=== PATIENT | female | born 1985 | race Caucasian/White ===

== ENCOUNTER → 2019-06-22 09:46 | Outpatient (CLI) | payer OTHER, SELFPAY ==
[2019-06-22 12:26] LABS: Hematocrit 33.3 % (37-47); Mean Corpuscular Hgb 30.3 pg (27.0-32.0); Mean Corpuscular Volume 91.7 fL (81-99); Platelet Count 443 K/mm3 (150-450); RBC Distribution Width CV 14.6 % (11.6-14.6); RBC Distribution Width SD 49.6 fl (35.1-43.9); Red Blood Count 3.63 M/mm3 (4.2-5.4); White Blood Count 11.9 K/mm3 (4.4-11.0)
[2019-06-22 12:32] LABS: Glucose Challenge Gest 1H 50g 134 mg/dL (70-140)
== END ==
PROVIDERS: Visit Provider Obstetrics & Gynecology
DX: Z34.83 Encounter for supervision of other normal pregnancy, third trimester (principal)
CPT/HCPCS: 36415; 82950; 85027

== ENCOUNTER → 2019-08-18 | Outpatient (CLI) | payer OTHER, SELFPAY | END | disposition home or self-care (01) | LOC: LABSPEC 14:43 | PROVIDERS: Referring Provider Advanced Practice Midwife; Visit Provider Advanced Practice Midwife | DX: Z34.83 Encounter for supervision of other normal pregnancy, third trimester (principal) | CPT/HCPCS: 87081 ==

== ENCOUNTER 2019-08-27 17:37 | Emergency (ER) | payer OTHER, SELFPAY ==
[2019-08-27 17:38] VITALS: BP 126/79; PULSE 120; RESP 16; TEMP 36.8; O2SAT 98; BMI 32.9
--- NOTE | 2019-08-27 17:48 | EKG12_ITS ---
Test Reason : SOB Blood Pressure : / mmHG Vent. Rate : 111 BPM Atrial Rate : 111 BPM P-R Int : 130 ms QRS Dur : 080 ms QT Int : 338 ms P-R-T Axes : 023 008 019 degrees QTc Int : 459 ms Sinus tachycardia Otherwise normal ECG Confirmed by AXEL JUÁREZ, MARSHA ([id number]), desk editor ANGEL ZIMMERMAN ([id number]) on 08/30/2019 8:58:40 AM Referred By: NIRU Confirmed By:MARSHA REYNA MD
--- NOTE | 2019-08-27 17:51 | ED.DCSUM_ITS ---
History of Present Illness Chief Complaint: Shortness of Breath Informant: Patient Onset: Days - 5 days Context: Gradual Onset Current Severity: Moderate Maximum Severity: Moderate Narrative: Patient presents with cough, shortness of breath, wheezing, and congestion. She states she started to get sick on Wednesday. She felt some chest heaviness with shortness of breath that she was concerned may be pneumonia. She developed sinus congestion that is now moved into her chest. She is coughing up green sputum. She reports a temperature of 99.8 T-max yesterday morning. Patient is currently 37 weeks . She has felt normal movement. She was seen by her OB 2 days ago for routine follow-up and mentioned that she was short of breath with a cough. He started her on a Z-Martínez but she has not noted any improvement. Past Medical History - Allergies and Home Meds Allergies/Adverse Reactions: Allergies No Known Allergies Allergy (Verified 08/27/19 17:38) Primary Care Physician: NOT,DEFINED [NON-STAFF] - Past Medical History: - - History of pneumonia Smoking Status: Never smoker Review of Systems General: Reports: Fever - T-max 99.8 Eyes: Denies: Visual changes - bilaterally ENT: Reports: - - Sinus congestion. Denies: Bilateral ear pain, Sore throat Cardiovascular: Reports: Chest pain - Chest heaviness Respiratory: Reports: Dyspnea, Cough, Sputum Gastrointestinal: Denies: Abdominal pain, Vomiting, Diarrhea Genitourinary: Denies: Dysuria Musculoskeletal: Denies: Extremity Pain Skin: Denies: Rash Neurological: Denies: Headache Allergy: Denies: Uticaria Physical Exam Vital Signs/Narrative: Vital Signs Temp Pulse Resp BP Pulse Ox 08/27/19 17:38 98.3 F 120 H 16 126/79 H 98 Inital Vital Signs reviewed: Yes General: Well nourished, Well developed Head: Normocephalic ENT: Moist mucous membranes, TM's clear Neck: Supple Cardiovascular: Tachycardia Respiratory: No distress, CTA bilaterally Abdomen: Soft - Gravid, Nontender Extremities: Nontender Skin: Normal color Neurological: Alert, Oriented x3 Psychological: Normal affect Diagnostic/Tx/Re-eval Impressions Chest X-Ray 08/27/19 17:53 IMPRESSION: Normal x-ray examination of the chest. Electronically Signed: Pepe Martinez MD at 18:25 EST , Service support , 08/27/19 17:53 Chest 1 View (Portable) [RAD] Stat 08/27/19 18:05 Mucosa - Nose Influenza Types A,B Direct FA (MARIBEL) - Final - POSITIVE INFLUENZA B Laboratory Results 08/27/19 08/27/19 18:00 18:00 WBC 8.8 RBC 3.89 L Hgb 11.6 L Hct 35.4 L MCV 91.0 MCH 29.8 MCHC 32.8 RDW Std Deviation 45.4 H RDW Coeff of Laura 13.8 Plt Count 366 MPV 9.8 Immature Gran % (Auto) 0.300 Neut % (Auto) 77.7 H Lymph % (Auto) 16.3 L Fulton % (Auto) 5.2 Eos % (Auto) 0.3 Baso % (Auto) 0.2 Absolute Neuts (auto) 6.8 Absolute Lymphs (auto) 1.43 Nucleated RBC % 0 Sodium 140 Potassium 3.8 Chloride 110 H Carbon Dioxide 21.0 Anion Gap 9 BUN 6 L Creatinine 0.51 L Estim Creat Clear Calc 146.88 Est GFR (MDRD) Af Amer 177 Est GFR (MDRD) Non-Af 146 BUN/Creatinine Ratio 11.7 Glucose 90 Calcium 8.4 L - EKG Initial EKG Interpretation: Sinus Tachycardia - Sinus tach at 111. Normal intervals and no acute ischemia. - Medical Decision Making Patient was given a liter IV fluids and heart rate improved to 100. Patient was given a DuoNeb treatment. Following this she states her lungs still feel tight. She does not have any wheezing. Test results are discussed with her. She is positive for influenza B. Technically she is outside the 48-hour window for Tamiflu treatment, however because she is she will be treated. First doses given here and prescription will be sent to [facility] in [place]. heart tones are measured at 160. I did speak with her GREEN MEAT GRADER, Dr. Miles. No further changes to her treatment. ED Disposition - Plan for ED Patient: Disposition: Home or Assisted Living Diagnosis: Influenza Instructions: INFLUENZA (Adult) Prescriptions: Oseltamivir Phosphate [Tamiflu] 75 mg PO BID #10 cap Transmission Status: Pending to [facility]/pharmacy #[id number] Referrals: Jaya Miles MD [STAFF PHYSICIAN] - Keep Rahda appointment
--- NOTE | 2019-08-27 17:53 | RAD_ITS ---
STUDY: X-RAY CHEST REASON FOR EXAM: Female, 34 years old. PT WITH COUGH/SOB, WHEEZING, AND GENERAL FLU LIKE SX. STARTED ON Z-SHARLENE FRI, BUT NOT FEELING ANY BETTER. 37WKS PREG, PATIENT WAS SHIELDED TECHNIQUE: Single frontal view of the chest. COMPARISON: None. FINDINGS: The lungs are clear and expanded. There is no demonstrated pleural abnormality. Normal size heart. Normal mediastinum and robert. Normal visualized pulmonary arteries. Normal visualized aortic arch and descending thoracic aorta. Normal visualized thoracic spine. Normal visualized ribs, clavicles, and shoulders. There is no demonstrated abnormality of the visualized soft tissue structures of the upper abdomen. RAD/Chest 1 View (Portable) IMPRESSION: Normal x-ray examination of the chest. Electronically Signed: Pepe Martinez MD at 18:25 EST , Service support ,
[2019-08-27] MEDS: 0.9% Normal Saline 1,000 ML 1000 ML IV (18:03)
[2019-08-27 18:22] LABS: Absolute Lymphocyte Count 1.43 X10^3/uL (0.83-4.51); Absolute Neutrophil Count 6.8 X10^3/uL (2.0-7.7); Basophil# 0.02 X10^3/uL; Basophil% 0.2 % (0-1); Eosinophil# 0.03 X10^3/uL; Eosinophils% 0.3 % (0-5); Hematocrit 35.4 % (37-47); Hemoglobin 11.6 g/dL (12.0-15.0); Lymphocyte # 1.43 X10^3/ul (4.0); Lymphocyte % 16.3 % (19-41); Mean Corp Hgb Conc 32.8 g/dL (32-36); Mean Corpuscular Hgb 29.8 pg (27.0-32.0); Mean Platelet Vol. 9.8 fl (6.2-12.0); Monocyte# 0.46 X10^3/uL; Monocyte% 5.2 % (0-10); NRBC Flagged by Analyzer 0 % (0-5); Neutrophil # 6.83 X10^3/uL (2.7-7.7); Neutrophil % 77.7 % (47-70); Platelet Count 366 K/mm3 (150-450); RBC Distribution Width CV 13.8 % (11.6-14.6); RBC Distribution Width SD 45.4 fl (35.1-43.9); Red Blood Count 3.89 M/mm3 (4.2-5.4); White Blood Count 8.8 K/mm3 (4.4-11.0)
[2019-08-27 18:26] LABS: Anion Gap 9 (5-15); BUN 6 mg/dL (7-18); BUN/Creat Ratio 11.7 RATIO (10-20); Calcium,Total 8.4 mg/dL (8.5-10.1); Chloride 110 mmol/L (98-107); Creatinine, Serum 0.51 mg/dL (0.55-1.02); EST Glomerular Filtration Rate 146 mL/min (>60); Est Glom Filt Rate - Afr Amer 177 mL/min (>60); Estimated Creatinine Clearance 146.88 ml/min; Glucose 90 mg/dL (74-106); Potassium 3.8 mmol/L (3.5-5.1); Sodium Level 140 mmol/L (136-145)
[2019-08-27 19:09] VITALS: PULSE 122; RESP 16
[2019-08-27] MEDS: Ipratropium/Albuterol Sulfate 3 ML AMPUL.NEB INHALATION (19:09)
[2019-08-27] MEDS: Oseltamivir Phosphate 75 MG Capsule PO (19:56)
[2019-08-27 20:03] VITALS: PULSE 101; RESP 20; O2SAT 98
== END 2019-08-27 20:04 | disposition home or self-care (01) ==
PROVIDERS: Emergency Provider Emergency Medicine
DX: O98.513 Other viral diseases complicating pregnancy, third trimester (principal); J10.1 Influenza due to other identified influenza virus with other respiratory manifestations; Z3A.37 37 weeks gestation of pregnancy; Z87.01 Personal history of pneumonia (recurrent)
CPT/HCPCS: 71045; 80048; 85025; 87804; 93005; 94640; 96360; 96361; 99285; J7030

== ENCOUNTER 2019-09-03 17:25 | Outpatient (CLI) | payer OTHER, SELFPAY ==
[2019-09-03 17:51] VITALS: BMI 33.1
--- NOTE | 2019-09-03 23:55 | OB.TRI.NOTE ---
- Problem List (1) 38 weeks gestation of Status: Acute (2) Decreased movement Status: Acute Qualifiers: Fetus number: single or unspecified fetus Trimester: third trimester Qualified Code(s): O36.8130 - Decreased movements, third trimester, not applicable or unspecified History of Present Illness Date of Service: 09/03/19 Was patient seen by the physician?: No Reason For Visit: FALL Final ZAINAB: 09/14/19 Gestational age: 38 Weeks and 3 Days History of Present Illness: 34yo G1 @ 38 3/7wga with c/o decreased movement today. She reports a fall yesterday on 09/02/19 with normal movement afterwards initially. She was picking something up off the floor while on her knees and fell over onto her side. Allergies No Known Allergies Allergy (Verified 08/27/19 17:38) NST - FHR Rate Baby A Baseline: 135 Variability:: Moderate Accelerations:: 15 x 15 Decelerations:: None NST Reactive:: Yes FHR Category:: Category I Uterine Activity:: 0/10 Impression/Plan Reactive NST -Pt felt improved movement during observation period per RN - status reassuring -d/c home
== END 2019-09-03 19:35 | disposition home or self-care (01) ==
PROVIDERS: Referring Provider Obstetrics & Gynecology; Visit Provider Obstetrics & Gynecology
DX: O36.8130 Decreased fetal movements, third trimester, not applicable or unspecified (principal); Z3A.38 38 weeks gestation of pregnancy; W19.XXXA Unspecified fall, initial encounter; Y93.9 Activity, unspecified; Y92.9 Unspecified place or not applicable
CPT/HCPCS: 59025; 59050; 99218; G0378

== ENCOUNTER 2019-09-21 19:08 | Inpatient (IN) | payer OTHER, SELFPAY ==
[2019-09-21 19:49] VITALS: BP 138/80; PULSE 103; TEMP 37.1
[2019-09-21 19:54] VITALS: BP 138/80; PULSE 103; TEMP 37.1; O2SAT 98
[2019-09-21 19:56] VITALS: PULSE 120; O2SAT 94
[2019-09-21 20:00] VITALS: BMI 33.4
[2019-09-21] MEDS: Lactated Ringers 1,000 ML 50 ML IV (20:05)
[2019-09-21 20:19] LABS: Absolute Lymphocyte Count 2.28 X10^3/uL (0.83-4.51); Basophil# 0.01 X10^3/uL; Basophil% 0.1 % (0-1); Eosinophil# 0.05 X10^3/uL; Eosinophils% 0.4 % (0-5); Hematocrit 35.2 % (37-47); Hemoglobin 11.6 g/dL (12.0-15.0); Lymphocyte # 2.28 X10^3/ul (4.0); Mean Corpuscular Hgb 29.8 pg (27.0-32.0); Mean Corpuscular Volume 90.5 fL (81-99); Mean Platelet Vol. 9.9 fl (6.2-12.0); Monocyte# 0.85 X10^3/uL; NRBC Flagged by Analyzer 0 % (0-5); Neutrophil # 10.97 X10^3/uL (2.7-7.7); Neutrophil % 76.9 % (47-70); Platelet Count 367 K/mm3 (150-450); RBC Distribution Width CV 14.4 % (11.6-14.6); RBC Distribution Width SD 47.4 fl (35.1-43.9); Red Blood Count 3.89 M/mm3 (4.2-5.4); White Blood Count 14.2 K/mm3 (4.4-11.0)
--- NOTE | 2019-09-21 22:20 | HP.PCM_ITS ---
- Problem List (1) 41 weeks gestation of Status: Acute History Date of Admission: 09/21/19 Final ZAINAB: 09/14/19 Final ZAINAB Source: US <20 weeks Gestational age: 41 Weeks and 0 Days History of this : This is a 34 year-old, G [1], P [], at 41 weeks gestational age scheduled for induction of labor. Medical History: Medical History (Last Updated 09/21/19 @ 22:[address] Siena Cabrera MD) Depression F32.9 Allergies No Known Allergies Allergy (Verified 08/27/19 17:38) Home Medications: Home Medications Pnv No.95/Ferrous Fum/Folic AC [ Caplet] 1 ea PO DAILY 08/27/19 Esomeprazole Magnesium [Nexium 24Hr] 20 mg PO DAILY 09/21/19 Smoking Status: Former smoker Alcohol: None Number of Fetus(es): 1 NST - FHR Rate Baby A Baseline: 130 Variability:: Moderate Accelerations:: 15 x 15 Decelerations:: None NST Reactive:: Yes FHR Category:: Category I Uterine Activity:: 1-2/10 History Past Pregnancies: Past Pregnancies Delivery Date Name GA/ Weeks Outcome Route Wt Sex Labor Length Anesthesia Delivery Location Provider FOB Labs: Mom's Problem List Problem Status Onset Code 39 weeks gestation of Acute Z3A.39 Mom's Labs & Results 09/21/19 09/21/19 20:05 20:05 WBC 14.2 H RBC 3.89 L Hgb 11.6 L Hct 35.2 L MCV 90.5 MCH 29.8 MCHC 33.0 RDW Std Deviation 47.4 H RDW Coeff of Laura 14.4 Plt Count 367 MPV 9.9 Immature Gran % (Auto) 0.600 Neut % (Auto) 76.9 H Lymph % (Auto) 16.0 L Whitman % (Auto) 6.0 Eos % (Auto) 0.4 Baso % (Auto) 0.1 Absolute Neuts (auto) 11.0 H Absolute Lymphs (auto) 2.28 Nucleated RBC % 0 Blood Type O POSITIVE Antibody Screen NEGATIVE Course Did the patient receive Yes care? Labs Blood Type: O RH: POSITIVE RPR/VDRL/Syphilis Nonreactive Rubella status Immune HbSAg Negative Date Done: 02/21/19 Chlamydia Negative Gonorrhea Negative HIV/AIDS Non-Reactive Group B Strep: Negative Other Lab Procedures/Results/ chlamydia and gonorrhea results found by Comments: Deborah under pts other doctor hx from Current Obstetrical History Gestational Diabetes No Incompetent Cervix Yes: fingertip Infertility Yes: IUI for sperm donor IUGR No Macrosomia No Hypertension/Pre-eclampsia No Placenta Previa/Abruption Yes: marginal in beginning, resolved on 09/08 PTL/PROM No Uterine anomaly No Oligohydramnios No Polyhydramnios No Multiple gestation No Past Medical History Asthma No Diabetes No Hypertension No Heart disease No Mitral valve prolapse No Neurologic/Seizure disorder/ No Migraines Kidney disease No Liver disease No Varicosities No Clotting disorders/Hx of DVT No Thyroid Dysfunction No Other medical diseases Yes: hiatal hernia Psychiatric disorders Yes: hx of depression, no meds Major trauma No Abnormal PAP smear No Sleep apnea No Mammogram in the last 2 years No Social History Marital Status: SINGLE Hx Smoking No Smoking Status Former smoker Expected Delivery Method: Spontaneous Vaginal Physical Exam Vitals: Vital Signs Temp Pulse BP Pulse Ox 98.8 F 120 H 138/80 H 94 09/21/19 19:54 09/21/19 19:56 09/21/19 19:54 09/21/19 19:56 General: Alert, Oriented x3, Cooperative HEENT: Atraumatic, Normocephalic Cardiovascular: Regular rate, Regular Rhythm, Normal S1, Normal S2 Lungs: Clear to auscultation, Normal air movement Abdomen: Soft, Non Tender, Non-Distended, Gravid Extremities:: No edema Neurological: Neuro grossly intact FAMILY PROTECTION SPECIALIST: Normal external genitalia Estimated gestational size: Appropriate for gestational size Presentation: Cephalic Cervix Dilation (cm): 0 Station: -3 Effacement (%): 25 Assessment/Plan All Active Problems (Last Updated 09/21/19 @ 22:[address] Siena Cabrera MD) 41 weeks gestation of (Acute) This is a 34 year-old, G [1], P [], at 41 weeks gestational age. -Misoprostol IOL -Maternal and statuses reassuring -Consents reviewed and signed. Patient and partner given opportunity to ask questions and questions answered to their satisfaction.
[2019-09-21 22:21] VITALS: BP 125/78; PULSE 86
[2019-09-21] MEDS: miSOPROStol 25 MCG TABLET PO (22:21)
[2019-09-21 22:22] VITALS: TEMP 37.1
[2019-09-21] MEDS: 0.9% Saline Lock 10 ML Syringe IV (22:27)
[2019-09-22] VITALS (45 sets, daily range): BP systolic 89–130; BP diastolic 51–84; PULSE 80–123; TEMP 36.3–37.9; O2SAT 95–100
[2019-09-22] MEDS: miSOPROStol 50 MCG TABLET PO (02:40)
[2019-09-22] MEDS: 0.9% Normal Saline Single 100 ML IV.SOLN. IY (06:40)
--- NOTE | 2019-09-22 06:41 | PCM.PN.BLA ---
Progress Note LABOR PROGRESS NOTE Reports mild contractions overnight. AVSS GEN - NAD, AAO x 3 FHR 140, moderate variability, + accelerations, no decelerations TOCO 1/10 min SVE 50/-2 A/P: 34yo G1 @ 41 1/7wga, IOL, Cat I FHR -Rivera catheter placed, 30cc NS -Will reassess in 2 hours, consider pitocin at that time -Maternal and statuses reassuring STROKE Vital Signs/Narrative: Vital Signs Temp Pulse BP Pulse Ox 09/22/19 04:11 97.6 F L 09/22/19 04:10 97.5 F L 87 113/64 96 09/22/19 02:42 98.1 F 86 127/71 H 98
[2019-09-22] MEDS: 0.9% Saline Lock 10 ML Syringe IV (07:02)
[2019-09-22] MEDS: Ondansetron 4 MG/2 ML Vial IV ×2 (08:29→18:41)
[2019-09-22] MEDS: fentaNYL 100 MCG/2 ML Ampul IV (08:31)
[2019-09-22] MEDS: Oxytocin 30 units/NS 500 ml 30 UNITS/500 ML IV.SOLN IV (09:13)
[2019-09-22] MEDS: Lactated Ringers 500 ML 999 ML IV ×2 (09:52→11:50)
[2019-09-22] MEDS: fentaNYL-bupivacaine (epidural) 100 ML BAG EPIDURAL ×3 (10:49→20:52)
[2019-09-22] MEDS: Lactated Ringers 1,000 ML 200 ML IV ×2 (14:46→19:50)
--- NOTE | 2019-09-22 20:48 | PCM.PN.BLA ---
Progress Note LABOR PROGRESS NOTE Comfortable with epidural. No complaints. AVSS GEN - NAD, AAO x 3 FHR 130, moderate variability, + accelerations, + variable deceleration, + early deceleration TOCO 4/10 min, mvu 175-210 SVE 5/75/-3, moderate and anterior A/P: 34yo G1 @ 41 1/7wga, Cat II FHR -Maternal and statuses overall reassuring -Continue pitocin as tolerated by mother and fetus STROKE Vital Signs/Narrative: Vital Signs Temp Pulse BP Pulse Ox 09/22/19 19:37 98.4 F 103 H 117/66 100 09/22/19 18:36 99.1 F 99 116/75 100 09/22/19 17:28 98.2 F 96 122/71 H 100
[2019-09-22] MEDS: Mag Hydrox/Al Hydrox/Simeth 30 ML UDC PO (22:20)
[2019-09-23] VITALS (29 sets, daily range): BP systolic 108–134; BP diastolic 47–97; PULSE 93–144; RESP 14–18; TEMP 35–38.4; O2SAT 93–99
[2019-09-23] MEDS: Lactated Ringers 1,000 ML 200 ML IV (00:11)
[2019-09-23] MEDS: Lactated Ringers 500 ML 999 ML IV (00:44)
[2019-09-23] MEDS: Ondansetron 4 MG/2 ML Vial IV (02:08)
[2019-09-23] MEDS: fentaNYL-bupivacaine (epidural) 100 ML BAG EPIDURAL (02:20)
--- NOTE | 2019-09-23 03:32 | PCM.PN.BLA ---
Progress Note LABOR PROGRESS NOTE Lena complains of significant discomfort from hiatal hernia, feels it rising and cannot get comfortable. VSS, Tm 101.1 (temporal), Tc GEN - NAD, AAO x 3 FHR 175, moderate variability, + accelerations, no decelerations TOCO 3/10 min SVE deferred A/P: 34yo G1 @ 41 2/7wga, Cat II FHR -Pitocin discontinued x 1 hour for decelerations, now resolved - tachycardia, ?maternal fever, however patient did not feel warm - likely intra-amnionic inflammation. -Offered patient section given >12 hours ruptured membranes on pitocin with review of surgical risks, benefits, indications. Discussed continuation of induction as alternative, may continue up to 24h. Discussed increased risk for infection associated with prolonged rupture, as well as risk for hemorrhage with prolonged labor. Patient reports severe discomfort from hernia and declines further trial of labor. Will proceed with section. IV Azithromycin, Ancef ordered. STROKE Vital Signs/Narrative: Vital Signs Temp Pulse BP Pulse Ox 09/23/19 03:02 98.5 F 09/23/19 02:59 101.1 F H 144 H 127/77 H 09/23/19 02:16 100.4 F H 09/23/19 02:15 100.8 F H 120 H 121/65 H 99 09/23/19 00:46 99.0 F 113 H 123/65 H 99 09/23/19 00:09 99.0 F 118 H 109/55 L 99
[2019-09-23] MEDS: Cefazolin 2 GM in 0.9% Normal Saline 100 ML IV (03:34)
[2019-09-23] MEDS: Sodium Citrate/Citric Acid 30 ML UDC PO (03:35)
--- NOTE | 2019-09-23 04:03 | PLAC_PTH ---
PATIENT: TWYLA SAN LOC: WP U#:[id number] AGE/SX: 34/F ROOM: WP005 RE09/21/[address]: Dr. Siena Alas MD : 1985 BED: 1 DIS: 09/25/2019 SPEC #: [id number] RECD: 09/23/19 06:04 STATUS: MALISSA REBernie #: [id number] NAVIN: 09/23/19 04:[address]: Siena Rose DEPT: SURGICAL PATHOLOGY RECD BY: Jovany Serra ENTERED: 09/25/19 06:57 SP TYPE: PLACENTA OTHR DR: Eliza Primary Care Phys Tissues: Placenta, NOS Procedures: Surgery Specimen Level V HEADER OPERATION: Primary section PRE-OP DIAGNOSIS: Labor and delivery TISSUE SUBMITTED: Placenta MICROSCOPIC DIAGNOSIS Placenta: Placental disc - third trimester bilobated placenta (503 gm). -?Focal area of infarction measuring 3 cm in greatest dimension, central portion of the placenta. -?Focal areas of intervillous and perivillous fibrin deposition and infarction (1 and 1.5 cm in greatest dimension). -?Acute vasculitis of subamnionic blood vessels. Membranes - moderate acute chorioamnionitis. Umbilical cord - three blood vessels and moderate to marked acute funisitis. SJ:kymberly 09/26/19 MICROSCOPIC DESCRIPTION Slides are reviewed. GROSS DESCRIPTION SPECIMEN: PLACENTA / CLINICAL INFORMATION: A. Weight: 3.027 kg B. Gestational Age: 41 weeks C. Sex: Male PLACENTAL WEIGHT (POST FIXATION): 503 gm PLACENTAL DIMENSIONS: The center thin portion of the bilobated placenta measures 3 x 1 x 0.2 cm and placental lobes measure 15 x 13 x 3 cm and 13 x 9 x 2.5 cm PLACENTAL SHAPE: Bilobated with central area of thin area. PLACENTAL WEIGHT FOR GESTATIONAL AGE: Within 10-99th percentile MEMBRANES - Present A. Insertion: Marginal B. Site of rupture from edge: At margin of one of the small pieces of placental disc C. Color of membrane: Rehman-greenish and mucoidy D. Abnormalities: None UMBILICAL CORD - Present A. Color: Rehman-singh B. Insertion: Between the two lobes of the placenta and paracentrally inserted C. Length: 33 cm D. Diameter: Up to 1.3 cm E. Number of vessels: Three F. Abnormalities: None PLACENTAL DISC - Present A. Color of surface: Rehman-singh B. surface abnormalities: None C. Maternal cotyledons: Intact with minimal tears D. Attached retro placental clot: No clot E. Cut surface: Dark red and spongy F. Lesions: Sections of the largest lobe of the placenta reveals two rehman, indurated lesions measuring 1 and 1.5 cm in greatest dimension. Sections of smaller lobe of placenta are noted without any ass lesion. G. Separate clot: Absent SECTIONS SUBMITTED: 1. Membrane roll 2. Cord, maternal end, central thin placenta including blood vessels 3. Cord, end, central thin placenta including blood vessels 4. Placental disc, and maternal surfaces, smaller lesion, larger lobe of placenta 5. Placental disc, and maternal surfaces, larger lesion, larger lobe of placenta 6. Placental disc, and maternal surfaces, smaller lobe of placenta SJ:kymberly 09/25/19 TC:2 CPT: 10523
[2019-09-23] MEDS: Methylergonovine 0.2 MG/ML Ampul IM (04:06)
--- NOTE | 2019-09-23 04:59 | PCM.OPRPT ---
Problem List (1) 41 weeks gestation of Status: Acute Report of Operation Description of Surgical Findings:: Infant 3255g Delivery Classification: BERNABE Final ZAINAB: 09/14/19 Final ZAINAB Source: US <20 weeks Gestational age: 41 Weeks and 2 Days [place] doctor who attended delivery (if requested by OB): Chad Vela machine bunch maker: Mehran Hines Type of Anesthesia:: Epidural Date of Procedure: 09/23/19 Pre-Operative Diagnosis: 41 2/7wga, intra-amnionic infection, failed induction Post-Operative Diagnosis: 41 2/7wga, suspected triple I, failed induction Indications: 34-year-old 1 at 41-2/7 weeks gestational age who had presented approximately 36 hours prior for postdates induction of labor. She received Cytotec followed by Rivear bulb and Pitocin and amniotomy and progressed to 4-5 cm dilation. She remained at this dilation for more than 12 hours despite increasing Pitocin with intermittent adequacy. The Pitocin was discontinued due to category 2 heart rate tracing with tachycardia and late decelerations with resolution of the late decelerations. The patient however complained of severe pain due to her her hiatal hernia with contractions. She was counseled regarding continue induction versus section. Risks, benefits, indications of each were reviewed at length. Patient opted to proceed with section. Indications for : Failed Induction Description of Procedure: The patient was taken to the operating room and spinal analgesia was administered. She is placed in a dorsal supine position with left lateral tilt. The perineum and abdomen were prepped and draped in sterile fashion. And the spinal was found to be adequate. A Pfannenstiel incision was made using a scalpel and brought down to incise the subcutaneous tissue and rectus fascia at the midline. Subcutaneous tissue was bluntly dissected off the fascia laterally. The fascial incision was dissected laterally and cephalad using curved Mckee scissors. The superior leaflet of the rectus fascia was grasped using Serafin clamps and bluntly dissected and sharply dissected from the underlying rectus muscle. In a similar fashion the inferior rectus fascia was dissected from the underlying muscle. The rectus muscles were bluntly at the midline. The peritoneum was identified and entered [sharply]. The bladder blade was placed into the abdomen and the vesicouterine peritoneal fold identified. The fold was incised and a bladder flap created. Bladder blade was then repositioned to the abdomen. A low transverse hysterotomy was made using the [Metzenbaum scissors] to level of the membranes. The hysterotomy was extended bluntly cephalad and caudad. The membranes were then ruptured revealing meconium stained fluid. The head was elevated and brought to the level of the hysterotomy and the infant delivered revealing vigorous [male] infant. The cord was doubly clamped and cut after 30 seconds. The infant was passed to awaiting [nursery personnel]. The placenta was [expressed] from the uterus and appeared intact on inspection. The uterus was cleared of debris. The hysterotomy was then repaired using 0 Vicryl running lock suture. A second imbricating layer was also placed for additional hemostasis. The bladder blade was removed. The anterior cul-de-sac was cleared of debris. The peritoneum and rectus muscles were reapproximated using 2-0 Vicryl running suture. The rectus fascia was closed using 0 Vicryl running suture. The subcutaneous tissue was sponge irrigated and small capillary bleeding controlled using the Bovie device. The subcutaneous tissue was reapproximated using 2-0 Vicryl. The skin was closed using 4-0 Monocryl subcuticularly by the THEATER MANAGER under my supervision. a Mepilex occlusive dressing was placed over the incision. The fundus was firm. The patient was then transferred to the recovery room without complication. Sponge, instrument, and needle counts were correct ?2. Amniotic Membrane Rupture Type: Artificial Amniotic Fluid Description: Thick meconium Placenta Disposition: [facility] Drain: Rivera to straight drain Cord Entanglement: None Nuchal Cord Compression: Without compression Cord Vessel Description: 3 Vessels Esitmated Blood Loss (ml): 600 Gender: Male (1 minute): 8 (5 minute): 9 Delayed cord clamping: Yes Antibiotic Given: Ancef 2 grams IV x1, Zithromax 500 mg/5 mL X1 Pt instructed on risks of surgery: Bleeding, Anesthesia Risks, Infection, Injury to surrounding structure(s) including bowel and bladder Complications: None - Admit VTE Documentation VTE Present on Admission: No VTE Mechan Device Prophylaxis: SCD's VTE Pharm Prophylaxis ordered?: No
[2019-09-23] MEDS: Lactated Ringers 1,000 ML 100 ML IV (05:00)
[2019-09-23] MEDS: Oxytocin 30 units/NS 500 ml 30 UNITS/500 ML IV.SOLN 167 UNITS IV (05:05)
--- NOTE | 2019-09-23 07:13 | NURSING ---
epidural cath removed. pt tolerated well. blue tip intact. bandaid and gauze applied to site.
[2019-09-23] MEDS: Ketorolac 30 MG/ML Syringe IV ×3 (10:30→22:52)
[2019-09-23] MEDS: Prenatal Vits Tablet 1 TABLET PO (10:30)
[2019-09-23] MEDS: 0.9% Saline Lock 10 ML Syringe IV ×3 (10:30→22:52)
[2019-09-23] MEDS: Pantoprazole Sodium 20 MG Tablet PO (10:30)
[2019-09-23] MEDS: Senna/Docusate Sodium 1 Tablet PO (16:44)
[2019-09-23] MEDS: Enoxaparin 40 MG/0.4 ML Syringe SC (16:44)
[2019-09-23] MEDS: Acetaminophen 325 MG Tablet PO (18:06)
[2019-09-24 00:10] VITALS: BP 96/50; PULSE 102; RESP 18; TEMP 36.4; O2SAT 97
[2019-09-24 02:10] VITALS: PULSE 100; RESP 18; O2SAT 98
[2019-09-24 04:12] VITALS: BP 117/68; PULSE 101; RESP 18; TEMP 36.4; O2SAT 97
[2019-09-24] MEDS: Ketorolac 30 MG/ML Syringe IV ×3 (04:39→16:12)
[2019-09-24] MEDS: 0.9% Saline Lock 10 ML Syringe IV ×3 (04:39→16:11)
[2019-09-24 05:33] LABS: Hematocrit 32.5 % (37-47); Hemoglobin 10.6 g/dL (12.0-15.0); Mean Corp Hgb Conc 32.6 g/dL (32-36); Mean Corpuscular Hgb 29.6 pg (27.0-32.0); Mean Corpuscular Volume 90.8 fL (81-99); Mean Platelet Vol. 9.8 fl (6.2-12.0); Platelet Count 268 K/mm3 (150-450); RBC Distribution Width CV 14.7 % (11.6-14.6); RBC Distribution Width SD 48.9 fl (35.1-43.9); Red Blood Count 3.58 M/mm3 (4.2-5.4); White Blood Count 22.6 K/mm3 (4.4-11.0)
--- NOTE | 2019-09-24 07:30 | PCM.PN.OB ---
Patient Problems: Active and Suspected Problems (Last Updated 09/21/19 @ 22:[address] Siena Cabrera MD) 41 weeks gestation of (Acute) Subjective: Infant was awake most of the night, so Lena did not get much sleep. She feels well overall. Pain is controlled. OOB, voiding without difficulty. Using incentive spirometer. Denies heavy lochia. Passing flatus. No complaints. Objective: AVSS - Physical Exam Vitals/I&O's: Vital Signs Temp Pulse Resp BP Pulse Ox 97.6 F L 101 H 18 117/68 97 09/24/19 04:12 09/24/19 04:12 09/24/19 04:12 09/24/19 04:12 09/24/19 04:12 Oxygen Delivery Method Room Air Weight: 94 kg Body Mass Index (BMI) 33.4 Intake and Output for Last 24 Hours 09/22/19 09/23/19 09/24/19 23:59 23:59 23:59 Intake Total 4397.51 / 4397.51 4040.30 / 4040.30 54 / 54 Output Total 3350 / 3350 2700 / 2700 800 / 800 Balance 1047.51 / 1047.51 1340.30 / 1340.30 -746 / -746 General: Alert, Oriented x3, Cooperative HEENT: Atraumatic, Normocephalic Lungs: Clear to auscultation, Normal air movement Cardiovascular: Regular rate, Regular Rhythm, Normal S1, Normal S2 Abdomen: Soft, Non Tender, Non-Distended, Bowel Sounds Not Present, - - Fundus firm and nontender, incisional dressing c/d/i, lochia scant Extremities: No Calf Tenderness, - - trace LE edema Neurological: Neuro grossly intact Psych/Mental Status: Normal Affect, Appropriate, Alert and oriented to time, place, person, mood and affect Laboratory Results 09/24/19 05:25: WBC 22.6 H, RBC 3.58 L, Hgb 10.6 L, Hct 32.5 L, MCV 90.8, MCH 29.6, MCHC 32.6, RDW Std Deviation 48.9 H, RDW Coeff of Laura 14.7 H, Plt Count 268, MPV 9.8 Current Medications Acetaminophen (Tylenol) 325 - 650 mg PO Q4H PRN PRN PRN Reason: Pain Score 1-3/10 Last Admin: 09/23/19 18:06 Dose: 650 mg Documented by: Bisacodyl (Dulcolax) 10 mg RECTAL UD PRN PRN Reason: If no BM Enoxaparin Sodium (Lovenox) 40 mg SC DAILY ON LICENSE OF [facility] Last Admin: 09/23/19 16:44 Dose: 40 mg Documented by: Hydrocortisone (Hytone) 1 applic TOPICAL TID PRN PRN; Protocol PRN Reason: Discomfort Naloxone HCl 4 mg/ Dextrose 504 mls @ 0 mls/hr IV .Q0M PRN; Protocol PRN Reason: Respiratory depression Ibuprofen (Motrin) 600 mg PO Q6H PRN PRN PRN Reason: Pain Score 1-3/10 Ketorolac Tromethamine (Toradol (Bkc)) 30 mg IV Q6H ON LICENSE OF [facility] Stop: 09/25/19 04:31 Last Admin: 09/24/19 04:39 Dose: 30 mg Documented by: Methylergonovine Maleate (Methergine) 0.2 mg IM X1 PRN PRN Reason: Uterine Atony Last Admin: 09/23/19 04:06 Dose: 0.2 mg Documented by: Naloxone HCl (Narcan) 0.02 mg IV Q1M PRN PRN Reason: RR <10 and pt unresponsive Ondansetron HCl (Zofran) 4 mg IV Q4H PRN PRN PRN Reason: NAUSEA Last Admin: 09/23/19 02:08 Dose: 4 mg Documented by: Ondansetron HCl (Zofran) 4 mg IV Q4H PRN PRN PRN Reason: Nausea Oxycodone HCl (Oxyir) 5 - 10 mg PO Q4H PRN PRN PRN Reason: Pain Score 4-10/10 Pantoprazole Sodium (Protonix) 20 mg PO DAILY ON LICENSE OF [facility] Last Admin: 09/23/19 10:30 Dose: 20 mg Documented by: Multivit/Folic Acid/Iron (Prenatabs Fa) 1 tablet PO DAILY@1200 ON LICENSE OF [facility] Last Admin: 09/23/19 10:30 Dose: 1 tablet Documented by: Prochlorperazine Edisylate (Compazine Iv) 10 mg IV Q6H PRN PRN PRN Reason: NAUSEA Senna/Docusate Sodium (Senokot-S, Cara-Colace) 0 tablet PO DAILY PRN PRN Reason: Constipation Last Admin: 09/23/19 16:44 Dose: 1 tablet Documented by: Simethicone (Mylicon) 80 mg PO PCHS PRN PRN Reason: Indigestion/stomach pain Sodium Chloride () 5 - 15 ml IV UD PRN PRN Reason: SALINE FLUSH Last Admin: 09/24/19 04:39 Dose: 10 ml Documented by: Medical Necessity - Tobacco Use Smoking Status: Former smoker Assessment/Plan All Active Problems (Last Updated 09/21/19 @ 22:[address] Siena Cabrera MD) 41 weeks gestation of (Acute) This is a 34 year-old, G [1], P1001 POD#1 s/p PLTCS for failed induction, doing well. -Rh positive -Routine postop care -
[2019-09-24 08:00] VITALS: BP 116/72; PULSE 96; RESP 18; TEMP 36.4
[2019-09-24] MEDS: Pantoprazole Sodium 20 MG Tablet PO (10:13)
[2019-09-24] MEDS: Enoxaparin 40 MG/0.4 ML Syringe SC (10:14)
[2019-09-24] MEDS: Prenatal Vits Tablet 1 TABLET PO (11:38)
[2019-09-24] MEDS: Acetaminophen 325 MG Tablet PO (12:41)
[2019-09-24 14:00] VITALS: BP 118/71; PULSE 94; RESP 18; TEMP 36.4
[2019-09-24] MEDS: oxyCODONE 5 MG Tablet PO (14:31)
[2019-09-24 21:00] VITALS: BP 125/79; PULSE 103; RESP 16; TEMP 36.8
[2019-09-24] MEDS: Ibuprofen 600 MG Tablet PO (23:43)
[2019-09-25] MEDS: oxyCODONE 5 MG Tablet PO ×2 (01:00→14:44)
[2019-09-25 03:31] VITALS: BP 129/64; PULSE 101; RESP 16; TEMP 36.2
[2019-09-25 05:31] LABS: Absolute Lymphocyte Count 2.41 X10^3/uL (0.83-4.51); Absolute Neutrophil Count 13.2 X10^3/uL (2.0-7.7); Basophil# 0.04 X10^3/uL; Basophil% 0.2 % (0-1); Eosinophil# 0.23 X10^3/uL; Eosinophils% 1.4 % (0-5); Hematocrit 29.6 % (37-47); Hemoglobin 9.9 g/dL (12.0-15.0); Lymphocyte # 2.41 X10^3/ul (4.0); Lymphocyte % 14.3 % (19-41); Mean Corp Hgb Conc 33.4 g/dL (32-36); Mean Corpuscular Hgb 30.3 pg (27.0-32.0); Mean Corpuscular Volume 90.5 fL (81-99); Mean Platelet Vol. 9.6 fl (6.2-12.0); Monocyte# 0.84 X10^3/uL; NRBC Flagged by Analyzer 0 % (0-5); Neutrophil # 13.23 X10^3/uL (2.7-7.7); Neutrophil % 78.2 % (47-70); Platelet Count 296 K/mm3 (150-450); RBC Distribution Width CV 14.6 % (11.6-14.6); RBC Distribution Width SD 48.7 fl (35.1-43.9); Red Blood Count 3.27 M/mm3 (4.2-5.4); White Blood Count 16.9 K/mm3 (4.4-11.0)
[2019-09-25] MEDS: Ibuprofen 600 MG Tablet PO (06:04)
[2019-09-25 07:37] VITALS: BP 108/70; PULSE 89; RESP 16; TEMP 37.1; O2SAT 97
--- NOTE | 2019-09-25 08:15 | PCM.PN.OB ---
Patient Problems: Active and Suspected Problems (Last Updated 09/21/19 @ 22:[address] Siena Cabrera MD) 41 weeks gestation of (Acute) Subjective: No issues overnight. Passing flatus. Tolerates regular diet. Pain controlled. OOB. Nursing is going well. Denies heavy lochia. Considering going home today. - Physical Exam Vitals/I&O's: Vital Signs Temp Pulse Resp BP Pulse Ox 98.7 F 89 16 108/70 97 09/25/19 07:37 09/25/19 07:37 09/25/19 07:37 09/25/19 07:37 09/25/19 07:37 Oxygen Delivery Method Room Air Weight: 94 kg Body Mass Index (BMI) 33.4 Intake and Output for Last 24 Hours 09/23/19 09/24/19 09/25/19 23:59 23:59 23:59 Intake Total 4040.30 / 4040.30 54 / 54 Output Total 2700 / 2700 800 / 800 Balance 1340.30 / 1340.30 -746 / -746 General: Alert, Oriented x3, Cooperative, No apparent distress HEENT: Atraumatic, Normocephalic Lungs: Clear to auscultation, Normal air movement Cardiovascular: Regular rate, Regular Rhythm, Normal S1, Normal S2 Abdomen: Soft, Non Tender, Non-Distended, - - Fundus firm and nontender, lochia scant, incisional dressing c/d/i Extremities: No edema, No Calf Tenderness Neurological: Neuro grossly intact Psych/Mental Status: Normal Affect, Appropriate, Alert and oriented to time, place, person, mood and affect Laboratory Results 09/25/19 05:24: WBC 16.9 H, RBC 3.27 L, Hgb 9.9 L, Hct 29.6 L, MCV 90.5, MCH 30.3, MCHC 33.4, RDW Std Deviation 48.7 H, RDW Coeff of Laura 14.6, Plt Count 296, MPV 9.6, Immature Gran % (Auto) 0.900, Neut % (Auto) 78.2 H, Lymph % (Auto) 14.3 L, [place] % (Auto) 5.0, Eos % (Auto) 1.4, Baso % (Auto) 0.2, Absolute Neuts (auto) 13.2 H, Absolute Lymphs (auto) 2.41, Nucleated RBC % 0 Current Medications Acetaminophen (Tylenol) 325 - 650 mg PO Q4H PRN PRN PRN Reason: Pain Score 1-3/10 Last Admin: 09/24/19 12:41 Dose: 650 mg Documented by: Bisacodyl (Dulcolax) 10 mg RECTAL UD PRN PRN Reason: If no BM Enoxaparin Sodium (Lovenox) 40 mg SC DAILY [facility] Last Admin: 09/25/19 10:35 Dose: 40 mg Documented by: Hydrocortisone (Hytone) 1 applic TOPICAL TID PRN PRN; Protocol PRN Reason: Discomfort Naloxone HCl 4 mg/ Dextrose 504 mls @ 0 mls/hr IV .Q0M PRN; Protocol PRN Reason: Respiratory depression Ibuprofen (Motrin) 600 mg PO Q6H PRN PRN PRN Reason: Pain Score 1-3/10 Last Admin: 09/25/19 06:04 Dose: 600 mg Documented by: Methylergonovine Maleate (Methergine) 0.2 mg IM X1 PRN PRN Reason: Uterine Atony Last Admin: 09/23/19 04:06 Dose: 0.2 mg Documented by: Naloxone HCl (Narcan) 0.02 mg IV Q1M PRN PRN Reason: RR <10 and pt unresponsive Ondansetron HCl (Zofran) 4 mg IV Q4H PRN PRN PRN Reason: NAUSEA Last Admin: 09/23/19 02:08 Dose: 4 mg Documented by: Oxycodone HCl (Oxyir) 5 - 10 mg PO Q4H PRN PRN PRN Reason: Pain Score 4-10/10 Last Admin: 09/25/19 01:00 Dose: 10 mg Documented by: Pantoprazole Sodium (Protonix) 20 mg PO DAILY [facility] Last Admin: 09/25/19 10:35 Dose: 20 mg Documented by: Multivit/Folic Acid/Iron (Prenatabs Fa) 1 tablet PO DAILY@1200 [facility] Last Admin: 09/24/19 11:38 Dose: 1 tablet Documented by: Prochlorperazine Edisylate (Compazine Iv) 10 mg IV Q6H PRN PRN PRN Reason: NAUSEA Senna/Docusate Sodium (Senokot-S, Cara-Colace) 0 tablet PO DAILY PRN PRN Reason: Constipation Last Admin: 09/23/19 16:44 Dose: 1 tablet Documented by: Simethicone (Mylicon) 80 mg PO PCHS PRN PRN Reason: Indigestion/stomach pain Last Admin: 09/24/19 10:16 Dose: 80 mg Documented by: Sodium Chloride () 5 - 15 ml IV UD PRN PRN Reason: SALINE FLUSH Last Admin: 09/24/19 16:11 Dose: 10 ml Documented by: Medical Necessity - Tobacco Use Smoking Status: Former smoker Assessment/Plan All Active Problems (Last Updated 09/21/19 @ 22:[address] Siena Cabrera MD) 41 weeks gestation of (Acute) This is a 34 year-old, G [1], P1001 POD21 s/p PLTCS for failed induction, doing well. -Rh positive -Routine postop care - -d/c home later today
[2019-09-25] MEDS: Enoxaparin 40 MG/0.4 ML Syringe SC (10:35)
[2019-09-25] MEDS: Pantoprazole Sodium 20 MG Tablet PO (10:35)
--- NOTE | 2019-09-25 12:09 | DCINST_ITS ---
Discharge Diet: No Restrictions Discharge Activity: Return to Normal Activity, May not drive while taking narcotic pain medications., May Shower May resume sexual activity in: 4 weeks Lifting Restrictions: 10-20 lb Suture Line Care: Avoid Pulling/Pushing Remove Dressing in (days):: 3 Cleanse incision/area with: Soap & Water, - - after dressing removed Additional Instructions: If you experience any of the following, contact your healthcare provider. * Bleeding that soaks a pad every hour for 2 hours * Fever 100.4 or higher * Unrelieved incision or abdominal pain * Swelling, redness, discharge or bleeding from your incision or episiotomy site * Your incision begins to separate * Problems urinating (including inability to urinate or burning while urinating). * Visual changes * Severe headache * Flu-like symptoms * Pain or redness in one of both of your breasts * Pain, warmth, tenderness or swelling in your legs, especially the calf area * Frequent nausea and vomiting * Symptoms of depression or anxiety If you experience any of the following, call 911 or go to the nearest Emergency Room. * Chest pain * Problems breathing * Seizure activity * Partial or complete paralysis of a body part, slurred speech, weakness or drooping of the face, or a sudden inability to walk or hold your balance Allergies/Adverse Reactions: Allergies No Known Allergies Allergy (Verified 08/27/19 17:38) Medications to take at Discharge Pnv No.95/Ferrous Fum/Folic AC [ Caplet] 1 ea PO DAILY 08/27/19 Esomeprazole Magnesium [Nexium 24Hr] 20 mg PO DAILY 09/21/19 Ibuprofen [Motrin] 600 mg PO Q8H PRN PRN #30 tab 09/25/19 Oxycodone [Oxyir] 1 - 2 tab PO Q6H PRN PRN 7 Days #20 tab 09/25/19 The following prescriptions were given: Ibuprofen [Motrin] 600 mg PO Q8H PRN PRN #30 tab PRN Reason: Pain Or Fever Transmission Status: Pending to [id number] Oxycodone [Oxyir] 1 - 2 tab PO Q6H PRN PRN 7 Days #20 tab PRN Reason: Pain Score 4-10/10 Prescription Printed Follow-Up: Call to make an appointment with your doctor for an incision check in 1-2 weeks. You will also need a 6 week post- follow up appointment. Test results from this visit will be discussed in further detail at your follow- up appointment, if applicable. Please Follow Up With: Jaya Miles MD - incision check When: 1-2 weeks Primary Care Physician: Care Physician,No Primary [Primary Care Provider] -
--- NOTE | 2019-09-25 12:22 | DS.PCM_ITS ---
Discharge Date and Diagnosis - Problem List Patient Problems: Active and Suspected Problems (Last Updated 09/21/19 @ 22:[address] Siena Cabrera MD) 41 weeks gestation of (Acute) Date of Admission: 09/21/19 Date of Discharge: 09/25/19 - Primary Discharge Diagnosis Active and Suspected Problems (Last Updated 09/21/19 @ 22:[address] Siena Cabrera MD) 41 weeks gestation of (Acute) Hospital Course and Treatment Summary of Care Provided: The patient is a 34 year old F 1 admitted at 41wga for scheduled induction of labor. She progressed to 5cm, but remained 5cm dilation despite more than 12 hours of pitocin following amniotomy. section was performed at 41 2/7wga and uncomplicated. Her course was unremarkable and she was discharged to home on postoperative day #2. Patient Problems: Active and Suspected Problems (Last Updated 09/21/19 @ 22:[address] Siena Cabrera MD) 41 weeks gestation of (Acute) - Physical Exam Vitals/I&O's: Vital Signs Temp Pulse Resp BP Pulse Ox 98.7 F 89 16 108/70 97 09/25/19 07:37 09/25/19 07:37 09/25/19 07:37 09/25/19 07:37 09/25/19 07:37 Oxygen Delivery Method Room Air Weight: 94 kg Body Mass Index (BMI) 33.4 Intake and Output for Last 24 Hours 09/23/19 09/24/19 09/25/19 23:59 23:59 23:59 Intake Total 4040.30 / 4040.30 54 / 54 Output Total 2700 / 2700 800 / 800 Balance 1340.30 / 1340.30 -746 / -746 Laboratory Results 09/25/19 05:24: WBC 16.9 H, RBC 3.27 L, Hgb 9.9 L, Hct 29.6 L, MCV 90.5, MCH 30.3, MCHC 33.4, RDW Std Deviation 48.7 H, RDW Coeff of Laura 14.6, Plt Count 296, MPV 9.6, Immature Gran % (Auto) 0.900, Neut % (Auto) 78.2 H, Lymph % (Auto) 14.3 L, [place] % (Auto) 5.0, Eos % (Auto) 1.4, Baso % (Auto) 0.2, Absolute Neuts (auto) 13.2 H, Absolute Lymphs (auto) 2.41, Nucleated RBC % 0 Current Medications Acetaminophen (Tylenol) 325 - 650 mg PO Q4H PRN PRN PRN Reason: Pain Score 1-3/10 Last Admin: 09/24/19 12:41 Dose: 650 mg Documented by: Bisacodyl (Dulcolax) 10 mg RECTAL UD PRN PRN Reason: If no BM Enoxaparin Sodium (Lovenox) 40 mg SC DAILY [facility] Last Admin: 09/25/19 10:35 Dose: 40 mg Documented by: Hydrocortisone (Hytone) 1 applic TOPICAL TID PRN PRN; Protocol PRN Reason: Discomfort Naloxone HCl 4 mg/ Dextrose 504 mls @ 0 mls/hr IV .Q0M PRN; Protocol PRN Reason: Respiratory depression Ibuprofen (Motrin) 600 mg PO Q6H PRN PRN PRN Reason: Pain Score 1-3/10 Last Admin: 09/25/19 06:04 Dose: 600 mg Documented by: Methylergonovine Maleate (Methergine) 0.2 mg IM X1 PRN PRN Reason: Uterine Atony Last Admin: 09/23/19 04:06 Dose: 0.2 mg Documented by: Naloxone HCl (Narcan) 0.02 mg IV Q1M PRN PRN Reason: RR <10 and pt unresponsive Ondansetron HCl (Zofran) 4 mg IV Q4H PRN PRN PRN Reason: NAUSEA Last Admin: 09/23/19 02:08 Dose: 4 mg Documented by: Oxycodone HCl (Oxyir) 5 - 10 mg PO Q4H PRN PRN PRN Reason: Pain Score 4-10/10 Last Admin: 09/25/19 01:00 Dose: 10 mg Documented by: Pantoprazole Sodium (Protonix) 20 mg PO DAILY [facility] Last Admin: 09/25/19 10:35 Dose: 20 mg Documented by: Multivit/Folic Acid/Iron (Prenatabs Fa) 1 tablet PO DAILY@1200 [facility] Last Admin: 09/24/19 11:38 Dose: 1 tablet Documented by: Prochlorperazine Edisylate (Compazine Iv) 10 mg IV Q6H PRN PRN PRN Reason: NAUSEA Senna/Docusate Sodium (Senokot-S, Cara-Colace) 0 tablet PO DAILY PRN PRN Reason: Constipation Last Admin: 09/23/19 16:44 Dose: 1 tablet Documented by: Simethicone (Mylicon) 80 mg PO PCHS PRN PRN Reason: Indigestion/stomach pain Last Admin: 09/24/19 10:16 Dose: 80 mg Documented by: Sodium Chloride () 5 - 15 ml IV UD PRN PRN Reason: SALINE FLUSH Last Admin: 09/24/19 16:11 Dose: 10 ml Documented by: Discharge Diet: No Restrictions Discharge Activity: Return to Normal Activity, May not drive while taking narcotic pain medications., May Shower May resume sexual activity in: 4 weeks Suture Line Care: Avoid Pulling/Pushing Remove Dressing in (days):: 3 Cleanse incision/area with: Soap & Water, - - after dressing removed Home Medications: Medications to take at Discharge Pnv No.95/Ferrous Fum/Folic AC [ Caplet] 1 ea PO DAILY 08/27/19 Esomeprazole Magnesium [Nexium 24Hr] 20 mg PO DAILY 09/21/19 Ibuprofen [Motrin] 600 mg PO Q8H PRN PRN #30 tab 09/25/19 Oxycodone [Oxyir] 1 - 2 tab PO Q6H PRN PRN 7 Days #20 tab 09/25/19 Following Prescrptions Were Given to Patient: Ibuprofen [Motrin] 600 mg PO Q8H PRN PRN #30 tab PRN Reason: Pain Or Fever Transmission Status: [id number] Oxycodone [Oxyir] 1 - 2 tab PO Q6H PRN PRN 7 Days #20 tab PRN Reason: Pain Score 4-10/10 Prescription Printed Primary Care Physician: Care Physician,No Primary [Primary Care Provider] - Please Follow Up With: Jaya Miles MD - incision check When: 1-2 weeks Medical Necessity - Tobacco Use Smoking Status: Former smoker Meaningful Use Info Meaningful Use Diagnoses (Choose all that apply): None applicable
[2019-09-25 14:05] VITALS: BP 103/69; PULSE 79; RESP 16; TEMP 36.8
[2019-09-25 15:05] VITALS: BP 119/62; PULSE 95; RESP 16; TEMP 36.8
[2019-09-27 09:48] LABS: Pathology Specimen OB SEE PATHOLOGY REPORT
== END 2019-09-25 15:05 | disposition home or self-care (01) | DRG 788 ==
PROVIDERS: Admitting Provider Obstetrics & Gynecology; Visit Provider Obstetrics & Gynecology
DX: O61.9 Failed induction of labor, unspecified (principal); O76 Abnormality in fetal heart rate and rhythm complicating labor and delivery; O48.0 Post-term pregnancy; Z37.0 Single live birth; Z3A.41 41 weeks gestation of pregnancy; Z87.891 Personal history of nicotine dependence; K44.9 Diaphragmatic hernia without obstruction or gangrene; O99.62 Diseases of the digestive system complicating childbirth; O77.0 Labor and delivery complicated by meconium in amniotic fluid
CPT/HCPCS: 59025; 59050; 85025; 85027; 86850; 86900; 86901; 88307; 99218; 99251; J7120; A4216; G0378; G0463; J2405

== ENCOUNTER → 2019-10-06 | Outpatient (CLI) | payer OTHER, SELFPAY ==
[2019-09-21 20:00] VITALS: BMI 33.4
== END | disposition home or self-care (01) ==
LOC: LABSPEC 13:55
PROVIDERS: Referring Provider Obstetrics & Gynecology; Visit Provider Obstetrics & Gynecology
DX: R30.0 Dysuria (principal)
CPT/HCPCS: 87086

== ENCOUNTER 2019-10-08 10:03 | Observation (INO) | payer OTHER, SELFPAY ==
[2019-10-08] VITALS (11 sets, daily range): BP systolic 101–122; BP diastolic 57–74; PULSE 73–148; RESP 15–25; TEMP 36.7–39.2; O2SAT 94–98; BMI 29.8; BMI 31.6; BMI 30.6
--- NOTE | 2019-10-08 10:30 | CT_ITS ---
STUDY: CT ABDOMEN AND PELVIS WITH CONTRAST REASON FOR EXAM: Female, 34 years old. FEVER ,PAIN , body aches POST OP 2 WEEKS AGO RADIATION DOSAGE (If Supplied By Facility): CTDIvol = ( 10.09 ) mGy, DLP = ( 1051.65 ) mGycm TECHNIQUE: Transaxial images were obtained from the dome of the diaphragm to the symphysis pubis with Gastrografin oral contrast. 100 mL of Isovue-300 was administered intravenously. Sagittal and coronal images were reconstructed. Individualized dose optimization techniques were used for this CT. COMPARISON: None. FINDINGS: The visualized lung bases are unremarkable. The visualized portions of the heart are within normal limits. Small nonenhancing hypodense cysts in the right hepatic lobe underneath the right hemidiaphragm. Mildly prominent gallbladder fossa but no gallbladder wall thickening and no suspicious gallstones. No intrahepatic or extrahepatic biliary ductal dilatation. Normal spleen. Normal pancreas. Normal bilateral adrenal glands. Normal right kidney. Normal left kidney. Normal visualized stomach. Normal small intestine. Normal colon. The appendix is visualized and appears normal. Normal abdominal aorta. Normal inferior vena cava. Normal retroperitoneum. Contrast inside the urinary bladder without suspicious abnormality. Prominent uterus without visible fibroid. This may be due to multiparity. No adnexal mass. Linear scarring across the lower pelvis may be from previous . Normal osseous structures. CT/Abdomen/Pelvis WITH Contrast IMPRESSION: 1. Tiny nonenhancing hypodense hepatic cyst underneath the right hemidiaphragm. 2. Mildly prominent gallbladder fossa without gallbladder wall thickening, gallstones or pericholecystic edema. 3. Prominent uterus is most likely due to multiparity. 4. No suspicious mass or acute abnormality in the abdomen and pelvis. 5. Normal CT of the appendix. Electronically Signed: Cristobal Cheng MD at 12:43 EDT , Service support ,
--- NOTE | 2019-10-08 10:35 | ED.DCSUM_ITS ---
- ER Visit Summary Date of Service: 10/08/19 Chief Complaint: Abdominal pain History of Present Illness: The patient is a 34 F who presents with abdominal pain that is been getting worse over the past several days. Patient states her pain is sharp and localized to the lower abdomen. Patient states nothing makes it better or worse. Patient states she went to [facility] emergency department recently and had testing done which was all negative. Patient states she is currently being treated for urinary tract infection. Patient does admit to some dysuria but denies any hematuria. Patient admits to nausea and vomiting. Patient states she is unable to keep anything down. Patient states she is unable to keep even water or her medications down. Patient denies any diarrhea, melena, or hematochezia. Patient is 2 weeks from a C- section. Patient admits to fevers up to 102 at home. Patient also admits to some chills and sweats. Patient states her pain does radiate into her back. Physical Examination: Vital signs are stable except for tachycardia of 148. Patient is afebrile. Patient is in no acute distress. Oral mucosa is pink and moist. Neck is supple. Trachea is midline. There is no JVD. Heart was regular and tachycardic. Lungs are clear and equal bilaterally. Abdomen is soft. Bowel sounds are somewhat diminished. There is lower abdominal tenderness. There is no rebound or guarding noted. Her incision is clean and dry. There is no erythema. There is no discharge or drainage. There are no signs of any infection. Cranial nerves II through XII are intact. There are no focal motor or sensory deficits noted. Extremities are intact. There is no calf tenderness or edema. Test Results: CBC shows a slight leukocytosis of 12.6. Basic metabolic profile was essentially within normal limits. Urinalysis shows leukocyte esterase of 100 with positive nitrates. There is 0-5 white blood cells but 1+ bacteria. Ketones were 150. Urine culture was ordered. 2 blood cultures were also ordered. CT scan of the abdomen pelvis was obtained. There is a prominent uterus and a hepatic cyst. There is no other acute intra-abdominal pathology. This was interpreted by the radiologist and reviewed by myself. Emergency Department Course and Treatment: Patient was given IV fluids, Zofran, and morphine. Patient did develop a fever here of 102. Patient was given a dose of Tylenol. Patient states her pain was improving. Patient states that she did have influenza B at 39 weeks and is concerned that she may have recurrence of the influenza. A flu swab and RSV swab was obtained. Case was discussed with Dr. Miles. He did also recommend adding a chest x-ray. Chest x-ray was ordered. He will admit the patient to his service. Disposition: Admit to hospital Impression: 1. Sepsis 2. Urinary tract infection 3. Status post 4. Possible endometritis This note was generated with [employer] dictation software. It may contain incorrect words, spelling, and punctuation that were not noted in review of the chart prior to signing ED Disposition - Plan for ED Patient: Referrals: Care Physician,No Primary [NON-STAFF] -
[2019-10-08 10:52] LABS: Mucous, Urine 0 SEEN /hpf (<or=2+)
[2019-10-08] MEDS: 0.9% Normal Saline 1,000 ML 1000 ML IV (10:53)
[2019-10-08] MEDS: Ondansetron 4 MG/2 ML Vial IV (10:53)
[2019-10-08] MEDS: Morphine 4 MG/ML Syringe IV (10:53)
[2019-10-08 10:55] LABS: Color, Urine Yellow (Yellow); Glucose, Dipstick Normal (Normal); Leukocyte Esterase-Dipstick 100 /ul (Negative); Nitrite-Dipstick Positive (Negative); Occult Blood-Urine 250 /ul (Negative); Protein-Dipstick 100 mg/dl (Negative); Specific Gravity, Urine 1.015 (1.002-1.030); Urine Clarity Sl. Cloudy (Clear); Urine Urobilinogen 1 mg/dl (Normal)
[2019-10-08 10:57] LABS: Absolute Lymphocyte Count 0.37 X10^3/uL (0.83-4.51); Absolute Neutrophil Count 11.6 X10^3/uL (2.0-7.7); Basophil# 0.01 X10^3/uL; Basophil% 0.1 % (0-1); Eosinophil# 0.39 X10^3/uL; Eosinophils% 3.1 % (0-5); Hematocrit 38.5 % (37-47); Hemoglobin 12.9 g/dL (12.0-15.0); Lymphocyte # 0.37 X10^3/ul (4.0); Lymphocyte % 2.9 % (19-41); Mean Corp Hgb Conc 33.5 g/dL (32-36); Mean Corpuscular Hgb 30.3 pg (27.0-32.0); Mean Corpuscular Volume 90.4 fL (81-99); Mean Platelet Vol. 9.2 fl (6.2-12.0); Monocyte# 0.24 X10^3/uL; Monocyte% 1.9 % (0-10); NRBC Flagged by Analyzer 0 % (0-5); Neutrophil # 11.57 X10^3/uL (2.7-7.7); Neutrophil % 91.5 % (47-70); POSITIVE DIFFERENTIAL YES; Platelet Count 432 K/mm3 (150-450); RBC Distribution Width CV 14.5 % (11.6-14.6); RBC Distribution Width SD 46.1 fl (35.1-43.9); Red Blood Count 4.26 M/mm3 (4.2-5.4); White Blood Count 12.6 K/mm3 (4.4-11.0)
[2019-10-08 11:01] LABS: Urine Bilirubin Dipstick 1 mg/dL (Negative)
[2019-10-08 11:05] LABS: Ketone-Dipstick 150 mg/dl (Negative)
[2019-10-08 11:08] LABS: Differential Indicated SCAN CRITERIA MET
[2019-10-08 11:11] LABS: ALB/GLOB Ratio 0.8 RATIO (0.9-2.4); AST(SGOT) 15 U/L (15-37); Alanine Aminotransfer ALT/SGPT 13 U/L (13-56); Albumin, Serum 3.1 g/dL (3.2-5.0); Alkaline Phosphatase 82 U/L (45-117); Anion Gap 11 (5-15); BUN 11 mg/dL (7-18); Calcium,Total 7.8 mg/dL (8.5-10.1); Chloride 104 mmol/L (98-107); EST Glomerular Filtration Rate 61 mL/min (>60); Est Glom Filt Rate - Afr Amer 73 mL/min (>60); Glucose 100 mg/dL (74-106); Lipase 33 U/L (73-393); Potassium 3.2 mmol/L (3.5-5.1); Protein, Total 7.1 g/dL (6.4-8.2); Sodium Level 137 mmol/L (136-145)
[2019-10-08 11:14] LABS: Bacteria 1+ /hpf (None Seen); Red Blood Cells-Urine 10-25 SEEN /hpf (0-5); Squamous Epithelial Cells - UA 5-10 SEEN /hpf (5-10); White Blood Cells 0-5 SEEN /hpf (0-5)
[2019-10-08] MEDS: Acetaminophen 500 MG Tablet 1000 MG PO (12:36)
--- NOTE | 2019-10-08 13:39 | RAD_ITS ---
STUDY: X-RAY CHEST REASON FOR EXAM: Female, 34 years old. FEVER, CHEST TIGHTNESS -- 2 WEEKS AGO TECHNIQUE: AP upright portable view. COMPARISON: 08/27/2019. FINDINGS: The lungs are clear and expanded. There is no demonstrated pleural abnormality. Normal size heart. Normal mediastinum and robert. Normal visualized pulmonary arteries. Normal visualized aortic arch and descending thoracic aorta. Normal visualized thoracic spine. Normal visualized ribs, clavicles, and shoulders. There is no demonstrated abnormality of the visualized soft tissue structures of the upper abdomen. RAD/Chest 1 View (Portable) IMPRESSION: Normal x-ray examination of the chest and unchanged when compared to 08/27/2019. Electronically Signed: Cristobal Cheng MD at 14:04 EDT , Service support ,
[2019-10-08 13:45] LABS: International Normalized Ratio 1.2; Prothrombin Time (Protime)PT. 15.3 SECONDS (11.7-14.9)
[2019-10-08 13:46] LABS: Partial Thromboplast Time 36.5 Seconds (24.1-36.2)
[2019-10-08 14:15] LABS: Lactic Acid 0.9 mmol/L (0.4-1.9)
[2019-10-08] MEDS: 0.9% Normal Saline 1,000 ML 125 ML IV ×2 (16:25→23:54)
[2019-10-08] MEDS: Ketorolac 30 MG/ML Syringe IV ×2 (17:04→23:54)
[2019-10-08] MEDS: 0.9% Saline Lock 10 ML Syringe IV (17:04)
--- NOTE | 2019-10-08 17:05 | PCM.HP.BLA ---
History and Physical Date of Admission: 10/08/19 Chief Complaint: Abdominal pain History of Present Illness: The patient is a 34 year old female who is approximately 2 weeks postoperative primary who presents with abdominal pain that is been getting worse over the past several days. She was seen in our office 2 days ago and diagnosed with a bladder infection given Macrobid after having dysuria. She began having nausea and vomiting last evening and lower abdominal pain became worse. Patient states nothing makes it better or worse. Patient states she went to [facility] emergency department during the night and had testing done including a CT scan which was all negative. No evidence of appendicitis or abscess from the section were noted. WBC at [facility] was approximately 14 and here it was 12. Patient does admit to some dysuria but denies any hematuria. Patient admits to nausea and vomiting. Patient states she is unable to keep anything down which started after beginning the antibiotic. Patient denies any diarrhea, melena, or hematochezia. Patient is 2 weeks from a . Patient admits to fevers up to 102 at home. In the ER at [facility] her temperature was 100.5 and upon presentation to the emergency room in [place] this afternoon it was normal but eventually developed a fever of approximately 102 ?F. Chest x-ray at [place] ER was negative. Patient states her pain does radiate into her upper back and denies any CVAT. She was given a single dose of Rocephin at [facility] ER and sent home on Keflex. Given that the patient has a fever and continued pain she is admitted for IV antibiotic treatment. She denies any shortness of breath and has no gastrointestinal issues with regard to diarrhea or bloating and has had bowel movements. Physical Examination: Vital signs are stable except for tachycardia of 148 upon presentation to the emergency room. Patient is afebrile at present and is in no acute distress. Oral mucosa is pink and moist. Neck is supple. Trachea is midline. There is no JVD. Heart was regular and tachycardic per ER. Lungs are clear and equal bilaterally per ER. Abdomen is soft. Bowel sounds are somewhat diminished per ER. There is minimal lower abdominal tenderness even over the uterus. There is no rebound or guarding noted. Her incision is clean and dry. There is no erythema. There is no discharge or drainage. There are no signs of any infection. Cranial nerves II through XII are intact. There are no focal motor or sensory deficits noted. Extremities are intact. There is no calf tenderness or edema. There is no CVA tenderness. Minimal vaginal bleeding has been noted by the patient. Patient is lactating and plans to pump during her admission. Test Results: CBC shows a slight leukocytosis of 12.6. Basic metabolic profile was essentially within normal limits. Urinalysis shows leukocyte esterase of 100 with positive nitrates. There is 0-5 white blood cells but 1+ bacteria. Ketones were 150. Urine culture was ordered. 2 blood cultures were also ordered. CT scan of the abdomen pelvis was obtained. There is a prominent uterus and a hepatic cyst. There is no other acute intra-abdominal pathology. Chest x-ray was read as normal. Impression/Plan: Likely urosepsis at 2 weeks postop . I suspect the nausea is from the oral Macrobid. Patient was given IV fluids, Zofran, and morphine in the ER. Patient did develop a fever in the ER of 102. Patient was given a dose of Tylenol. Patient states her pain was improving. Patient states that she did have influenza B at 39 weeks and is concerned that she may have recurrence of the influenza. A flu swab and RSV swab was obtained. Given fever and elevated white count it was decided to admit the patient for IV antibiotics and observation. A dose of Zosyn was given in the emergency room and we will continue this antibiotic until afebrile for 24 hours.
[2019-10-08] MEDS: Enoxaparin 30 MG/0.3 ML Syringe SC (18:51)
[2019-10-08] MEDS: Acetaminophen 500 MG Tablet PO (22:30)
[2019-10-09] VITALS (8 sets, daily range): BP systolic 106–125; BP diastolic 56–79; PULSE 89–131; RESP 18–96; TEMP 36.6–39.1; O2SAT 95–100
[2019-10-09] MEDS: Ondansetron 4 MG/2 ML Vial IV (00:57)
[2019-10-09] MEDS: Enoxaparin 30 MG/0.3 ML Syringe SC (06:12)
[2019-10-09 06:57] LABS: Absolute Neutrophil Count 3.9 X10^3/uL (2.0-7.7); Eosinophils% 11.1 % (0-5); Hematocrit 34.6 % (37-47); Hemoglobin 11.2 g/dL (12.0-15.0); Lymphocyte % 12.9 % (19-41); Mean Corp Hgb Conc 32.4 g/dL (32-36); Mean Corpuscular Hgb 29.2 pg (27.0-32.0); Mean Corpuscular Volume 90.1 fL (81-99); Mean Platelet Vol. 9.5 fl (6.2-12.0); Monocyte# 0.19 X10^3/uL; Monocyte% 3.5 % (0-10); NRBC Flagged by Analyzer 0 % (0-5); Neutrophil # 3.92 X10^3/uL (2.7-7.7); Neutrophil % 72.3 % (47-70); Platelet Count 416 K/mm3 (150-450); RBC Distribution Width CV 14.4 % (11.6-14.6); RBC Distribution Width SD 47.3 fl (35.1-43.9); Red Blood Count 3.84 M/mm3 (4.2-5.4); White Blood Count 5.4 K/mm3 (4.4-11.0)
[2019-10-09] MEDS: 0.9% Normal Saline 1,000 ML 125 ML IV (07:09)
[2019-10-09 07:23] LABS: Creatinine, Serum 0.75 mg/dL (0.55-1.02); EST Glomerular Filtration Rate 94 mL/min (>60); Est Glom Filt Rate - Afr Amer 114 mL/min (>60); Estimated Creatinine Clearance 99.88 ml/min
[2019-10-09] MEDS: Pantoprazole Sodium 20 MG Tablet PO (10:02)
--- NOTE | 2019-10-09 13:39 | PCM.PN.OB ---
Subjective: Patient without complaints. Feeling better. Tolerating diet well. Had a single febrile episode about midnight last night with associated pains. None since. Denies nausea vomiting and diarrhea. Has about 2 loose stools daily. Denies any pain anywhere at this point. Denies any shortness of breath or respiratory symptoms. Objective: Wound is clean, dry, intact. Abdomen is soft and nontender without any tenderness over the uterine fundus. Lungs are clear to auscultation x2. No CVA tenderness. - Physical Exam Vitals/I&O's: Vital Signs Temp Pulse Resp BP Pulse Ox 98.3 F 101 H 96 H 117/72 96 10/09/19 13:24 10/09/19 13:24 10/09/19 13:24 10/09/19 13:24 10/09/19 13:24 Oxygen Delivery Method Room Air Weight: 189 lb 13.088 oz Body Mass Index (BMI) 30.6 Intake and Output for Last 24 Hours 10/07/19 10/08/19 10/09/19 23:59 23:59 23:59 Intake Total 2035.42 / 2515.42 2994.58 / 2994.58 Output Total 400 / 400 Balance 2035.42 / 2515.42 2594.58 / 2594.58 Microbiology Past 72 Hours 10/08/19 10:35 Urine, Clean Catch Urine Culture - Preliminary Culture exhibits no growth. 10/08/19 14:08 Mucosa - Nasopharyngeal Rapid RSV (DFA) - Final 10/08/19 14:08 Mucosa - Nasopharyngeal Influenza Types A,B Direct FA (MARIBEL) - Final Laboratory Results 10/08/19 10:40: PT 15.3 H, INR 1.2, APTT 36.5 H 10/08/19 13:30: Lactic Acid 0.9 10/09/19 06:23: WBC 5.4, RBC 3.84 L, Hgb 11.2 L, Hct 34.6 L, MCV 90.1, MCH 29.2, MCHC 32.4, RDW Std Deviation 47.3 H, RDW Coeff of Laura 14.4, Plt Count 416, MPV 9.5, Immature Gran % (Auto) 0.200, Neut % (Auto) 72.3 H, Lymph % (Auto) 12.9 L, [place] % (Auto) 3.5, Eos % (Auto) 11.1 H, Baso % (Auto) 0.0, Absolute Neuts (auto) 3.9, Absolute Lymphs (auto) 0.70 L, Nucleated RBC % 0 10/09/19 06:23: Creatinine 0.75, Estim Creat Clear Calc 99.88, Est GFR (MDRD) Af Amer 114, Est GFR (MDRD) Non-Af 94 Current Medications Acetaminophen (Tylenol) 1,000 mg PO Q4H PRN PRN PRN Reason: HEADACHE/FEVER (T>100F) Diphenhydramine HCl (Benadryl) 25 mg PO Q4H PRN PRN Reason: ITCHING Docusate Sodium (Colace) 100 mg PO BID PRN PRN PRN Reason: Constipation Enoxaparin Sodium (Lovenox) 30 mg SC DAILY@0600 [facility] Last Admin: 10/09/19 06:12 Dose: 30 mg Documented by: Sodium Chloride () 250 mls @ 15 mls/hr IV .[id number] PRN PRN Reason: Saline Flush Sodium Chloride () 250 mls @ 15 mls/hr IV .[id number] PRN PRN Reason: Additional IVPB Infusion Ketorolac Tromethamine (Toradol (Bkc)) 30 mg IV Q6H PRN PRN PRN Reason: Pain Score 1-10/10 Stop: 10/13/19 16:18 Last Admin: 10/08/19 23:54 Dose: 30 mg Documented by: Ondansetron HCl (Zofran) 4 mg IV Q8H PRN PRN PRN Reason: NAUSEA Last Admin: 10/09/19 00:57 Dose: 4 mg Documented by: Oxycodone HCl (Oxyir) 5 mg PO Q6H PRN PRN PRN Reason: Pain Score 6-10/10 Pantoprazole Sodium (Protonix) 20 mg PO DAILY [facility] Last Admin: 10/09/19 10:02 Dose: 20 mg Documented by: Sodium Chloride () 10 - 40 ml IV UD PRN PRN Reason: SALINE FLUSH Last Admin: 10/08/19 17:04 Dose: 10 ml Documented by: Medical Necessity - Tobacco Use Smoking Status: Former smoker Assessment/Plan All Active Problems (Last Updated 09/21/19 @ 22:[address] Siena Cabrera MD) 41 weeks gestation of (Acute) Doing well hospital day #1 status post admission for presumed urosepsis with section about 2 weeks ago. Patient has received 3 doses of Zosyn and white count has diminished from approximately 12 to 5. Given this and no fever since midnight last night, will discontinue Zosyn and continue to monitor today and overnight. RSV and influenza test were negative. Urine and blood cultures negative. If patient continues to have a fever we will need to consider infectious disease consultation. If no fevers, anticipate release to home tomorrow.
[2019-10-09] MEDS: DiphenhydrAMINE 25 MG Capsule PO (14:55)
[2019-10-09] MEDS: oxyCODONE 5 MG Tablet PO (17:00)
[2019-10-10 05:00] VITALS: BP 121/73; PULSE 90; RESP 16; TEMP 36.7; O2SAT 96
[2019-10-10] MEDS: Enoxaparin 30 MG/0.3 ML Syringe SC (05:04)
--- NOTE | 2019-10-10 08:30 | PN.OBGYN_ITS ---
Subjective: Patient without complaints. Denies any pain. Now afebrile for more than 24 hours. Zosyn stopped at noon yesterday. - Physical Exam Vitals/I&O's: Vital Signs Temp Pulse Resp BP Pulse Ox 98.1 F 90 16 121/73 H 96 10/10/19 05:00 10/10/19 05:00 10/10/19 05:00 10/10/19 05:00 10/10/19 05:00 Oxygen Delivery Method Room Air Weight: 189 lb 13.088 oz Body Mass Index (BMI) 30.6 Intake and Output for Last 24 Hours 10/08/19 10/09/19 10/10/19 23:59 23:59 23:59 Intake Total 2035.42 / 2515.42 3044.58 / 3044.58 Output Total 400 / 400 Balance 2035.42 / 2515.42 2644.58 / 2644.58 Microbiology Past 72 Hours 10/08/19 10:35 Urine, Clean Catch Urine Culture - Preliminary Culture exhibits no growth. 10/08/19 14:08 Mucosa - Nasopharyngeal Rapid RSV (DFA) - Final 10/08/19 14:08 Mucosa - Nasopharyngeal Influenza Types A,B Direct FA (MARIBEL) - Final Current Medications Acetaminophen (Tylenol) 1,000 mg PO Q4H PRN PRN PRN Reason: HEADACHE/FEVER (T>100F) Diphenhydramine HCl (Benadryl) 25 - 50 mg PO Q4H PRN PRN PRN Reason: ITCHING Last Admin: 10/09/19 14:55 Dose: 50 mg Documented by: Docusate Sodium (Colace) 100 mg PO BID PRN PRN PRN Reason: Constipation Enoxaparin Sodium (Lovenox) 30 mg SC DAILY@0600 [facility] Last Admin: 10/10/19 05:04 Dose: 30 mg Documented by: Sodium Chloride () 250 mls @ 15 mls/hr IV .[id number] PRN PRN Reason: Saline Flush Sodium Chloride () 250 mls @ 15 mls/hr IV .[id number] PRN PRN Reason: Additional IVPB Infusion Ketorolac Tromethamine (Toradol (Bkc)) 30 mg IV Q6H PRN PRN PRN Reason: Pain Score 1-10/10 Stop: 10/13/19 16:18 Last Admin: 10/08/19 23:54 Dose: 30 mg Documented by: Ondansetron HCl (Zofran) 4 mg IV Q8H PRN PRN PRN Reason: NAUSEA Last Admin: 10/09/19 00:57 Dose: 4 mg Documented by: Oxycodone HCl (Oxyir) 5 mg PO Q6H PRN PRN PRN Reason: Pain Score 6-10/10 Last Admin: 10/09/19 17:00 Dose: 5 mg Documented by: Pantoprazole Sodium (Protonix) 20 mg PO DAILY [facility] Last Admin: 10/09/19 10:02 Dose: 20 mg Documented by: Sodium Chloride () 10 - 40 ml IV UD PRN PRN Reason: SALINE FLUSH Last Admin: 10/08/19 17:04 Dose: 10 ml Documented by: Medical Necessity - Tobacco Use Smoking Status: Former smoker Assessment/Plan All Active Problems (Last Updated 09/21/19 @ 22:[address] Siena Cabrera MD) 41 weeks gestation of (Acute) Resolved urosepsis. Will discharge to home with routine instructions. Follow- up for routine postoperative check in a month.
[2019-10-10 08:33] VITALS: BP 123/72; PULSE 90; RESP 16; RESP 18; TEMP 36.3; O2SAT 98
--- NOTE | 2019-10-10 08:35 | DCINST_ITS ---
- Discharge Diagnoses Reason(s) for Visit for Discharge Instructions: Presumed Urosepsis 2 Weeks Status Post Primary Section You will use the following diet at home:: No restrictions Discharge Activity: Return to Normal Activity, May Shower, May Take a Tub Bath May resume sexual activity in: 2 weeks Weight Bearing Status: - - No lifting greater than 25 pounds for another month Additional Activity Instructions:: Okay to breast-feed Call your doctor if you observe: Fever of 101 or Higher, Inability to have a bowel movement, Using more than one pad per hour, Shortness of breath, Uncont rolled pain Additional Instructions: Call if fever greater than 101 ?F; okay to use Tylenol or ibuprofen as needed Allergies/Adverse Reactions: Allergies No Known Allergies Allergy (Verified 10/08/19 10:12) Medications to take at Discharge RX: Pnv No.95/Ferrous Fum/Folic AC [ Caplet] 1 ea PO DAILY 08/27/19 RX: Esomeprazole Magnesium [Nexium 24Hr] 20 mg PO DAILY 09/21/19 RX: Ibuprofen [Motrin] 600 mg PO Q8H PRN PRN #30 tab 09/25/19 Primary Care Physician: Care Physician,No Primary [NON-STAFF] - Test Results: Test results from this visit will be discussed in further detail at your follow- up appointment, if applicable. Please Follow Up With: Jaya Miles MD When: 4 weeks for routine check
[2019-10-10] MEDS: Pantoprazole Sodium 20 MG Tablet PO (09:43)
[2019-10-10 10:49] VITALS: BP 118/70; PULSE 70; RESP 18; TEMP 37.2; O2SAT 98
== END 2019-10-10 08:32 | disposition home or self-care (01) ==
LOC: ED 10:56 → PCU 10-09 08:02
PROVIDERS: Admitting Provider Obstetrics & Gynecology; Emergency Provider Emergency Medicine; Visit Provider Obstetrics & Gynecology
DX: O86.22 Infection of bladder following delivery (principal); Z87.891 Personal history of nicotine dependence
CPT/HCPCS: 36415; 71045; 74177; 80053; 81001; 82565; 83605; 83690; 85025; 85610; 85730; 87040; 87086; 87804; 87807; 96361; 96365; 96366; 96372; 96375; 96376; 99218; 99285; J7030; J7040; Q9967; A4216; G0378; J2405

== ENCOUNTER → 2020-04-05 17:28 | Outpatient (CLI) | payer OTHER, SELFPAY ==
[2019-10-08 15:36] VITALS: BMI 30.6
--- NOTE | 2020-04-05 17:36 | CT_ITS ---
STUDY: CT BRAIN WITHOUT CONTRAST REASON FOR EXAM: Female, 34 years old. FRONTAL MIGRAINE, PAIN BEHIND RIGHT EYE X 3 MO. 6 MO PP. RADIATION DOSAGE (If Supplied By Facility): CTDIvol = ( 44.99 ) mGy, DLP = ( 745.49 ) mGycm TECHNIQUE: Transaxial CT imaging of the brain was performed without administration of intravenous contrast material. Individualized dose optimization techniques were used for this CT. COMPARISON: No relevant priors. FINDINGS: Normal soft tissue structures. Normal calvarium. Normal size ventricles and extra-axial spaces for the patient''s age. Normal white matter tracts of the cerebral hemispheres. Normal basal ganglia and thalami. Normal brainstem. Normal cerebellum. There is no intracranial hemorrhage. There are no findings of an acute ischemic infarction. Normal visualized paranasal sinuses. CT/Brain/Head without Contrast IMPRESSION: Normal unenhanced CT scan of the brain. Electronically Signed: Christian Redd MD at 17:49 EDT , Service support ,
== END ==
DX: G43.909 Migraine, unspecified, not intractable, without status migrainosus (principal)
CPT/HCPCS: 70450

== ENCOUNTER → 2020-10-18 13:45 | Outpatient (CLI) | payer MEDICAID, SELFPAY ==
[2019-10-08 15:36] VITALS: BMI 30.6
[2020-10-24 16:08] LABS: HPV Reflexed? NOT INDICATED
== END ==
PROVIDERS: Visit Provider Obstetrics & Gynecology
DX: Z12.4 Encounter for screening for malignant neoplasm of cervix (principal)
CPT/HCPCS: 88175; G0145

== ENCOUNTER → 2020-11-07 11:04 | Outpatient (CLI) | payer MEDICAID, SELFPAY ==
[2019-10-08 15:36] VITALS: BMI 30.6
--- NOTE | 2020-11-07 11:30 | MRI_ITS ---
STUDY: MRI BRAIN WITH AND WITHOUT CONTRAST REASON FOR EXAM: Female, 35 years old. ATAXIA TECHNIQUE: Standardized multiplanar fat and water weighted pulse sequences were obtained. IV dotarem 17ml was administered for the contrast portion of the examination. COMPARISON: 04/05/2020 FINDINGS: Normal size of the ventricles and extra-axial spaces for the patient''s age. Normal white matter tracts of the supratentorial brain. Normal bilateral basal ganglia. Normal thalami. There is no extra-axial fluid accumulation. Normal flow voids within the major intracranial circulation suggesting patency by spin echo criteria. Normal venous enhancement. There is no enhancing intra-axial or extra-axial abnormality. Normal sella turcica, pituitary gland, infundibular stalk, optic chiasm and hypothalamus. Normal tectal plate and pineal gland. Normal midbrain, jase and medulla. Normal cerebellum. Normal basal cisterns. MRI/Brain W/WO Contrast IMPRESSION: Unremarkable unenhanced and enhanced MRI of the brain. Electronically Signed: Madeline Crane MD at 11:49 EDT Tel , Service support ,
== END ==
PROVIDERS: PCP Student in an Organized Health Care Education/Training Program; Referring Provider Otolaryngology Otolaryngology/Facial Plastic Surgery; Visit Provider Otolaryngology Otolaryngology/Facial Plastic Surgery
DX: R27.0 Ataxia, unspecified (principal)
CPT/HCPCS: 70553; A9575

== ENCOUNTER → 2021-12-02 | Outpatient (CLI) | payer MEDICAID, SELFPAY ==
[2021-12-05 20:47] LABS: HPV Reflexed? NOT INDICATED
== END | disposition home or self-care (01) ==
LOC: LABSPEC 16:05
PROVIDERS: PCP Student in an Organized Health Care Education/Training Program; Visit Provider Obstetrics & Gynecology
DX: Z12.4 Encounter for screening for malignant neoplasm of cervix (principal)
CPT/HCPCS: 88175; G0145